=== PATIENT | male | born 1985 | race Caucasian/White ===

== ENCOUNTER → 2017-02-09 | Outpatient (CLI) | payer BC, OTHER ==
[2017-02-09 12:10] LABS: HEMOGLOBIN 14.6 gm/dl (14.0-17.5); RED BLOOD COUNT 4.78 M/UL (4.20-5.50); WHITE BLOOD COUNT 7.6 K/UL (4.5-11.0)
[2017-02-09 12:29] LABS: BUN/CREATININE RATIO 11 (0-10)
== END ==
LOC: LAB 11:06
PROVIDERS: Obstetrics & Gynecology
DX: F11.20 Opioid dependence, uncomplicated (principal)
CPT/HCPCS: 36415; 80053; 85025; 86701; 86702; 86803; 87340